=== PATIENT | male | born 1990 | race Caucasian/White ===

== ENCOUNTER 2024-05-07 13:24 | Emergency (ER) | payer BC, SELFPAY ==
--- OUTSIDE RECORDS SUMMARY | 2024-05-07 13:28 | XMS REPORT | Clinical Summary ---
Author Name Unknown Organization [facility] Address [address] [place] [address] Care Team Providers Care Senior Air Director Name Role Phone Ivan Zapata MD Unavailable [phone] Ivan Zapata MD Unavailable [phone] Yadiel Morales MD Primary Care Provider [phone] Allergies No known active allergies Medications * This document contains information received from the source organization and may not represent a complete record from that organization. ibuprofen 200 mg cap Take 200 mg by mouth as needed. Active cetirizine 10 mg cap Take 10 mg by mouth. 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 Tooth disorder I've pretty much always had bad teeth. Ulcer 08-28-16 Stomach ulcer fo rmed during chemo, one time thing. Disorder of testis 07-15-16 Testicular ca ncer. Anemia 08-28-16 During and follo wing chemo. Fracture of bone 08-04-2009 Fractured left heel. Complication of internal pro sthetic device 10-29-2009 Plate and screws in left joe t due to fracture. Obsessive-compulsive disorder Ve ry mild, never formally diagnosed. 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 Family History Medical History Relation Name Comments -Breast cancer Mother Elisabeth Caro Relation Name Status Comments Mother Elisabeth Gordo Social History Tobacco Use Types Packs/Day Years Used Date Smoking Tobacco: Former Cigarettes 0.5 7 0 08/14/2008 - 02/14/2015 Smokeless Tobacco: Never Tobacco Cessation:Ready to Q uit: Yes Alcohol Use Standard Drinks/Week Comments Yes 0 (1 standard drink = 0.6 oz pure alcohol) Very light use. I will often go months without having any. Sex and Gender Information Value Date Recorded Sex Assigned at Not on file Legal Sex Male 11:37 AM CDT Gender Identity Not on file Sexual Orientation Not on file Obstetrics History Plan of Treatment Health Maintenance Due Date Last Done Comments COVID-19 Vaccine (2023-2 5 season) 2023 05/09/2020, 04/18/2020 Influenza Vaccine (#1) 2023 Pneumococcal Vaccine Aged Out No long er eligible based on patient's age to complete this topic [place] [facility] [place] [facility] [id number] [place] [id number] Care Teams Senior Air Director Relationship Specialty Start Date End Date Ivan Zapata MD [email or web address] - External Referring Internal Medicine 08/29/17 Ivan Zapata MD [email or web address] [email or web address] - External Follow Up A Internal Medicine 08/29/17 Yadiel Morales MD [address] [place] [id number] [email or web address] PCP - General Genitourinary Oncology 08/29/17
--- NOTE | 2024-05-07 13:58 | RAD REPORT ---
EXAMINATION: ONE VIEW CHEST XR CLINICAL INDICATION: COUGH TECHNIQUE: Frontal chest projection is submitted. Examination is limited by patient positioning and t echnique. COMPARISON: No prior exam. FINDINGS: The lungs are well inflated and clear. The heart is upper limit of normal in size. No displaced fract ures identified. IMPRESSION: No acute intrathoracic abnormalities.
--- NOTE | 2024-05-07 13:59 | RAD REPORT ---
EXAM: CT brain without contrast HISTORY: HEADACHE COMPARISON: None TECHNIQUE: Multiple contiguous axial images were obtained and a CT of the brain without contrast. Sag ittal and coronal reformats were performed. One or more of the following dose reduction techniques were used: Automated exposure control, adjust ment of the mA and/or kV according to patient size, and/or iterative reconstruction. FINDINGS: No evidence of hydrocephalus, intracranial hemorrhage, or extra-axial fluid collection. The brain is normal in morphology. No evidence of midline shift or areas of brain edema. The calvarium is intact. The visualized paranasal sinuses and mastoid air cells are essentially clear . IMPRESSION: No evidence of acute intracranial abnormality.
[2024-05-07] MEDS ORDERED: NA CHLORIDE 0.9% 1,000 ML ONE (14:12)
[2024-05-07 14:19] LABS: Absolute Eosinophils 0.1 K/uL (0-0.5); Absolute Monocytes 0.5 K/uL (0.1-1.3); Absolute Neutrophil 4.3 K/uL (1.8-8.0); Basophils % 0.3 % (0-1.3); Eosinophils % 1.3 % (0-4.4); Hematocrit 43.9 % (39.6-49.0); Hemoglobin 14.8 g/dL (13.6-17.9); Lymphocytes % 17.4 % (15.3-44.8); MCH 28.4 pg (27.0-35.0); MCHC 33.8 g/dL (32.0-36.0); MCV 84.1 fL (80-100); MPV 7.1 fL (7.6-11.3); Nucleated Red Blood Cells % 0.1 % (0-0); Platelets 199 thou/uL (152-406); RBC Red Blood Cell Count 5.22 M/uL (4.33-5.43); Red Cell Distribution Width 14.3 % (12.1-15.2)
[2024-05-07 14:24] LABS: PT Prothrombin Time 12.1 SECONDS (10-13.0); Protime INR 1.06
[2024-05-07 14:44] LABS: Albumin 3.8 g/dL (3.4-5.0); Albumin/Globulin Ratio 0.9 (1.1-1.8); Anion Gap 4.8 mEq/L (5.0-15.0); Bilirubin Direct 0.2 mg/dL (0-0.2); Bilirubin Indirect, Calculated 0.6 mg/dL (0.2-0.8); Bilirubin Total 0.8 mg/dL (0.2-1.0); Globulin 4.2 g/dL (2.3-3.5); Magnesium 2.3 mg/dL (1.6-2.4); Potassium 3.8 mEq/L (3.5-5.1); Thyroid Stimulating Hormone 1.49 uIU/mL (0.358-3.740); Troponin High Sensitivity 3.1 pg/mL (<58.9)
--- NOTE | 2024-05-07 14:51 | EDPHYS ---
Physician Documentation [facility] Name: Gerhard Caro Age: 33 yrs Sex: Male : 1990 Arrival Date: 05/07/2024 Time: 13:24 Bed 13 Private MD: ED Physician Arash You HPI: 05/07 14:29 This 33 yrs old Male presents to ER via Ambulatory with complaints of gold Headache, heart beating fast. 14:29 The patient complains of pain to the forehead. The patient describes the headache as gold aching. Onset: The symptoms/episode began/occurred just prior to arrival. Associated signs and symptoms: The patient has no apparent associated signs or symptoms. Severity of symptoms: At its worst the pain was mild, in the emergency department the pain is unchanged. Headache History: The patient has had previous headaches and this one is similar to previous episodes. The patient has experienced similar episodes in the past, several times, multiple times. Historical: - Allergies: 13:35 No Known Allergies; aa5 - Home Meds: 13:35 None [Active]; aa5 - PMHx: 13:35 Testicular cancer; aa5 - PSHx: 13:35 Testicular cancer sx; Left foot; aa5 - Immunization history:: Adult Immunizations unknown. - Infectious Disease History:: Denies. - Social history:: Smoking status: Reported history of juuling and/or vaping. ROS: 14:32 Constitutional: Negative for fever, chills, and weight loss, Eyes: Negative for injury, gold pain, redness, and discharge, ENT: Negative for injury, pain, and discharge, Neck: Negative for injury, pain, and swelling, Respiratory: Negative for shortness of breath, cough, wheezing, and pleuritic chest pain, Abdomen/GI: Negative for abdominal pain, nausea, vomiting, diarrhea, and constipation, Back: Negative for injury and pain, : Negative for injury, bleeding, discharge, and swelling, MS/Extremity: Negative for injury and deformity, Skin: Negative for injury, rash, and discoloration, Psych: Negative for depression, anxiety, suicide ideation, homicidal ideation, and hallucinations, Allergy/Immunology: Negative for hives, rash, and allergies, Endocrine: Negative for neck swelling, polydipsia, polyuria, polyphagia, and marked weight changes, Hematologic/Lymphatic: Negative for swollen nodes, abnormal bleeding, and unusual bruising, 14:32 Cardiovascular: Positive for palpitations, 14:32 Neuro: Positive for headache, near syncope, Exam: 14:32 Constitutional: This is a well developed, well nourished patient who is awake, alert, gold and in no acute distress. Head/Face: Normocephalic, atraumatic. Eyes: Pupils equal round and reactive to light, extra-ocular motions intact. Lids and lashes normal. Conjunctiva and sclera are non-icteric and not injected. Cornea within normal limits. Periorbital areas with no swelling, redness, or edema. ENT: Nares patent. No nasal discharge, no septal abnormalities noted. Tympanic membranes are normal and external auditory canals are clear. Oropharynx with no redness, swelling, or masses, exudates, or evidence of obstruction, uvula midline. Mucous membranes moist. Neck: Trachea midline, no thyromegaly or masses palpated, and no cervical lymphadenopathy. Supple, full range of motion without nuchal rigidity, or vertebral point tenderness. No Meningismus. Chest/axilla: Normal chest wall appearance and motion. Nontender with no deformity. No lesions are appreciated. Cardiovascular: Regular rate and rhythm with a normal S1 and S2. No gallops, murmurs, or rubs. Normal PMI, no JVD. No pulse deficits. Respiratory: Lungs have equal breath sounds bilaterally, clear to auscultation and percussion. No rales, rhonchi or wheezes noted. No increased work of breathing, no retractions or nasal flaring. Abdomen/GI: Soft, non-tender, with normal bowel sounds. No distension or tympany. No guarding or rebound. No evidence of tenderness throughout. Back: No spinal tenderness. No costovertebral tenderness. Full range of motion. Male : Normal genitalia with no discharge or lesions. Skin: Warm, dry with normal turgor. Normal color with no rashes, no lesions, and no evidence of cellulitis. MS/ Extremity: Pulses equal, no cyanosis. Neurovascular intact. Full, normal range of motion., bilateral aka Neuro: Awake and alert, GCS 15, oriented to person, place, time, and situation. Cranial nerves II-XII grossly intact. Motor strength 5/5 in all extremities. Sensory grossly intact. Cerebellar exam normal. Normal gait. Psych: Awake, alert, with orientation to person, place and time. Behavior, mood, and affect are within normal limits. 14:32 ECG was reviewed by the Attending Physician. 14:32 Musculoskeletal/extremity: DVT Exam: No signs of deep vein thrombosis. no pain, no swelling, no tenderness, negative Homans' sign noted on exam, no appreciated bluish discoloration, no erythema, no increased warmth, Vital Signs: 13:33 BP 135 / 83; Pulse 80; Resp 18 S; Temp 97.5(TE); Pulse Ox 100% on R/A; Weight 131.54 kg aa5 (R); Height 6 ft. 5 in. (R); 14:22 BP 115 / 76; Pulse 73; Resp 18; Pulse Ox 96% on R/A; ph 15:29 BP 121 / 78; Pulse 71; Resp 18; Temp 97.5; Pulse Ox 98% on R/A; ph 13:33 Body Mass Index 34.39 (131.54 kg, 195.58 cm) aa5 NIH Stroke Scale Scores: 14:32 NIHSS Score: 0 gold Edu Coma Score: 14:34 Eye Response: spontaneous(4). Motor Response: obeys commands(6). Verbal Response: gold oriented(5). Total: 15. MDM: 13:34 Medical Screening Exam initiated gold 14:34 Differential diagnosis: cluster headache, hypoglycemia, hyponatremia, migraine, gold neoplasm, subarachnoid bleed, subdural hematoma, temporal arteritis, trigeminal neuralgia. Data reviewed: vital signs, nurses notes, lab test result(s), EKG, radiologic studies, plain films. Consideration of Admission/Observation Escalation of care including admission/observation considered. I considered the following discharge prescriptions or medication management in the emergency department Medications were administered in the Emergency Department. See MAR. Independent interpretation of the following test(s) in the Emergency Department EKG: See my EKG interpretation above. Test considered but Not performed: MRI: no mri brain. Historians other than the Patient: Spouse/Significant Other: well informed. Care significantly affected by the following chronic conditions: Obesity, Cancer. 05/07 13:36 Order name: Basic Metabolic Panel; Complete Time: 14:50 [facility] 05/07 13:36 Order name: CBC with Diff; Complete Time: 14:29 [facility] 05/07 13:36 Order name: LFT's; Complete Time: 14:50 05/07 13:36 Order name: Magnesium; Complete Time: 14:50 05/07 13:36 Order name: NT PRO-BNP; Complete Time: 14:50 05/07 13:36 Order name: PT-INR; Complete Time: 14:29 05/07 13:36 Order name: Troponin HS; Complete Time: 14:50 05/07 13:36 Order name: TSH; Complete Time: 14:50 05/07 13:36 Order name: XRAY Chest (1 view); Complete Time: 14:14 05/07 13:36 Order name: CT Head Brain wo Cont; Complete Time: 14:14 [facility] 05/07 13:36 Order name: Cardiac monitoring; Complete Time: 14:06 05/07 13:36 Order name: EKG - Nurse/Tech; Complete Time: 14:06 05/07 13:36 Order name: IV Saline Lock; Complete Time: 14:19 [facility] 05/07 13:36 Order name: Labs collected and sent; Complete Time: 14:19 05/07 13:36 Order name: O2 Per Protocol; Complete Time: 13:55 [facility] 05/07 13:36 Order name: O2 Sat Monitoring; Complete Time: 13:55 [facility] EC:32 Rate is 75 beats/min. Rhythm is regular. QRS [place] is Normal. [place] interval is normal. QRS gold interval is normal. QT interval is normal. No Q waves. T waves are Normal. No ST changes noted. Clinical impression: Normal ECG and No evidence of ischemia. Interpreted by me. Reviewed by me. Administered Medications: 14:19 Drug: NS 0.9% IV 1000 ml IV at 1 bolus Per protocol; to be given as a bolus over 60 ph minutes Route: IV; Rate: 1 bolus; Site: right antecubital; 15:28 Follow up: Response: No adverse reaction; IV Status: Completed infusion; IV Intake: ph 1000ml Disposition Summary: 05/07/24 14:51 Discharge Ordered Notes: Location: Home gold Problem: new gold Symptoms: have improved gold Condition: Stable gold Diagnosis - Anxiety disorder, unspecified gold - Headache gold - Syncope Near gold Followup: gold - With: Private Physician - When: 2 - 3 days - Reason: Recheck today's complaints, Continuance of care, Re-evaluation by your physician Discharge Instructions: - Discharge Summary Sheet gold - General Headache Without Cause gold - Near-Syncope gold - Near-Syncope, [id number]-mf-[id number] gold - Panic Attack, Svjv-ot-Afxq gold - General Headache Without Cause, Sday-ml-Ztnq gold - Supporting Someone With Anxiety gold - Managing Anxiety, Adult gold Forms: - Medication Reconciliation Form gold - Antibiotic Education gold - Prescription Opioid Use gold - Patient Portal Instructions gold - Leadership Thank You Letter gold - Work release form iw Prescriptions: - Ibuprofen 600 mg Oral Tablet - take 1 tablet ORAL route every 6 hours As needed take with food; 30 tablet; gold Refills: 0, Product Selection Permitted NIH Stroke Scale - NIH Stroke Score Date: 05/07/2024 Time: 14:32 Total Score = 0 10. Dysarthria (speech clarity - read or repeat words) - 0(Normal) 11. Extinction and Inattention (visual/tactile/auditory/spatial/personal) - 0(No abnormality) 1a. Level of Consciousness (LOC) - 0(Alert) 1b. Level of Consciousness (LOC) (Month \T\ Age) - 0(Both) 1c. LOC Commands (Open \T\ Closes Eyes/Wall Scraper) - 0(Both) 2. Best Gaze (Lateral Gaze Paresis) - 0(Normal) 3. Visual Field Loss - 0(No visual loss) 4. Facial Palsy - 0(Normal) 5a. Left Arm: Motor (10-second hold) - 0(No drift) 5b. Right Arm: Motor (10-second hold) - 0(No drift) 6a. Left Leg: Motor (5-second hold - always test supine) - 0(No drift) 6b. Right Leg: Motor (5-second hold - always test supine) - 0(No drift) 7. Limb Ataxia (finger/nose \T\ heel/sood - test with eyes open) - 0(Absent) 8. Sensory Loss (pinprick arms/legs/face) - 0(Normal) 9. Best Language: Aphasia (description/naming/reading) - 0(No aphasia) Initials: gold Signatures: Dispatcher [employer] Arash Jay MD MD cha Calderon, Audri, RN RN mei5 Monica Araujo RN RN ph Corrections: (The following items were deleted from the chart) 13:36 13:35 PMHx: None; aa5 aa5 13:37 13:37 BASIC METABOLIC PANEL+C.LAB.BRZ ordered. EDMS EDMS 13:37 13:37 CBC+H.LAB.BRZ ordered. EDMS EDMS 13:37 13:37 HEPATIC FUNCTION+C.LAB.BRZ ordered. EDMS EDMS 13:37 13:37 MAGNESIUM+C.LAB.BRZ ordered. EDMS EDMS 13:37 13:37 PROBNP+C.LAB.BRZ ordered. EDMS EDMS 13:37 13:37 PROTIME (+INR)+COAG.LAB.BRZ ordered. EDMS EDMS 13:37 13:37 Troponin High Sensitivity+C.LAB.BRZ ordered. EDMS EDMS 13:37 13:37 Urinalysis+U.LAB.BRZ ordered. EDMS EDMS 13:37 13:37 URINE DRUG SCREEN+UC.LAB.BRZ ordered. EDMS EDMS 13:37 13:37 THYROID STIMULAT HORMONE+C.LAB.BRZ ordered. EDMS EDMS 13:37 13:37 Chest Single View+RAD.RAD.BRZ ordered. EDMS EDMS 13:37 13:37 Head Brain Wo Cont+CT.RAD.BRZ ordered. EDMS EDMS
--- NOTE | 2024-05-07 14:51 | ER ---
Nurse's Notes [facility] Name: Gerhard Caro Age: 33 yrs Sex: Male : 1990 Arrival Date: 05/07/2024 Time: 13:24 Bed 13 Private MD: Diagnosis: Anxiety disorder, unspecified;Headache;Syncope Near Presentation: 05/07 13:33 Chief complaint: Patient states: "about an hour ago my heart started racing, I got aa5 dizzy and lightheaded and I passed out and fell over". Pt denies any known injuries, reports still feeling lightheaded. Coronavirus screen: At this time, the client does not indicate any symptoms associated with coronavirus-19. Ebola Screen: Patient denies travel to an Ebola-affected area in the 21 days before illness onset. Initial Sepsis Screen: Does the patient meet any 2 criteria? No. Patient's initial sepsis screen is negative. Does the patient have a suspected source of infection? No. Patient's initial sepsis screen is negative. Risk Assessment: Do you want to hurt yourself or someone else? Patient reports no desire to harm self or others. Onset of symptoms was April 2024. 13:33 Acuity: LORI 3 aa5 13:33 Method Of Arrival: Ambulatory aa5 Historical: - Allergies: 13:35 No Known Allergies; aa5 - Home Meds: 13:35 None [Active]; aa5 - PMHx: 13:35 Testicular cancer; aa5 - PSHx: 13:35 Testicular cancer sx; Left foot; aa5 - Immunization history:: Adult Immunizations unknown. - Infectious Disease History:: Denies. - Social history:: Smoking status: Reported history of juuling and/or vaping. Screenin:20 [facility] ED Fall Risk Assessment (Adult) History of falling in the last 3 months, ph including since admission Yes- physiologic fall (2 pts) Confusion or Disorientation No (0 pts) Intoxicated or Sedated No (0 pts) Impaired Gait No (0 pts) Mobility Assist Device Used No (0 pt) Altered Elimination No (0 pt) Score/Fall Risk Level 0 - 2 = Low Risk Oriented to surroundings, Maintained a safe environment, Hourly rounding (assess needs \\T\\ fall precautionary measures) done, Used ambulatory aids as needed (educated on \\T\\ assisted with). Abuse screen: Denies threats or abuse. Denies injuries from another. Nutritional screening: No deficits noted. Tuberculosis screening: No symptoms or risk factors identified. Assessment: 14:21 General: Appears in no apparent distress. Behavior is calm, cooperative. Pain: Denies ph pain. Neuro: Level of Consciousness is awake, alert, obeys commands, Oriented to person, place, time, situation, Reports a syncopal episode. Cardiovascular: Capillary refill < 3 seconds in bilateral fingers Patient's skin is warm and dry. Respiratory: Airway is patent Respiratory effort is even, unlabored, Respiratory pattern is regular, symmetrical. Derm: Skin is pink, warm \\T\\ dry. Vital Signs: 13:33 BP 135 / 83; Pulse 80; Resp 18 S; Temp 97.5(TE); Pulse Ox 100% on R/A; Weight 131.54 kg aa5 (R); Height 6 ft. 5 in. (R); 14:22 BP 115 / 76; Pulse 73; Resp 18; Pulse Ox 96% on R/A; ph 15:29 BP 121 / 78; Pulse 71; Resp 18; Temp 97.5; Pulse Ox 98% on R/A; ph 13:33 Body Mass Index 34.39 (131.54 kg, 195.58 cm) aa5 Edu Coma Score: 14:34 Eye Response: spontaneous(4). Motor Response: obeys commands(6). Verbal Response: gold oriented(5). Total: 15. NIH Stroke Scale Scores: 14:32 NIHSS Score: 0 gold ED Course: 13:29 Patient arrived in ED. al6 13:33 Arm band placed on. aa5 13:34 Arsah You MD is Attending Physician. gold 13:35 Triage completed. aa5 13:46 Monica Araujo, RN is Primary Nurse. ph 13:51 CT Head Brain wo Cont In Process Unspecified. EDMS 13:54 XRAY Chest (1 view) In Process Unspecified. EDMS 14:06 EKG done, by ED staff, reviewed by Arash You MD. zm 14:21 Patient has correct armband on for positive identification. Bed in low position. Call ph light in reach. Side rails up X 1. surveillance monitor on. Pulse ox on. NIBP on. Door closed. Noise minimized. 14:21 Initial lab(s) drawn, by me, sent to lab. Inserted saline lock: 20 gauge in right ph antecubital area, using aseptic technique. Blood collected. Flushed with 10 mL NS. 15:28 No provider procedures requiring assistance completed. IV discontinued, intact, ph bleeding controlled, No redness/swelling at site. Pressure dressing applied. Administered Medications: 14:19 Drug: NS 0.9% IV 1000 ml IV at 1 bolus Per protocol; to be given as a bolus over 60 ph minutes Route: IV; Rate: 1 bolus; Site: right antecubital; 15:28 Follow up: Response: No adverse reaction; IV Status: Completed infusion; IV Intake: ph 1000ml Medication: 14:20 VIS not applicable for this client. ph Intake: 15:28 IV: 1000ml; Total: 1000ml. ph Outcome: 14:51 Discharge ordered by . gold 15:29 Discharged to home ambulatory, with significant other, 15:29 Condition: good 15:29 Discharge instructions given to patient, Instructed on discharge instructions, follow up and referral plans. medication usage, Demonstrated understanding of instructions, follow-up care, medications, Prescriptions given X 1, 15:29 Patient left the ED. ph NIH Stroke Scale - NIH Stroke Score Date: 05/07/2024 Time: 14:32 Total Score = 0 10. Dysarthria (speech clarity - read or repeat words) - 0(Normal) 11. Extinction and Inattention (visual/tactile/auditory/spatial/personal) - 0(No abnormality) 1a. Level of Consciousness (LOC) - 0(Alert) 1b. Level of Consciousness (LOC) (Month \\T\\ Age) - 0(Both) 1c. LOC Commands (Open \\T\\ Closes Eyes/Decal Transferrer) - 0(Both) 2. Best Gaze (Lateral Gaze Paresis) - 0(Normal) 3. Visual Field Loss - 0(No visual loss) 4. Facial Palsy - 0(Normal) 5a. Left Arm: Motor (10-second hold) - 0(No drift) 5b. Right Arm: Motor (10-second hold) - 0(No drift) 6a. Left Leg: Motor (5-second hold - always test supine) - 0(No drift) 6b. Right Leg: Motor (5-second hold - always test supine) - 0(No drift) 7. Limb Ataxia (finger/nose \\T\\ heel/sood - test with eyes open) - 0(Absent) 8. Sensory Loss (pinprick arms/legs/face) - 0(Normal) 9. Best Language: Aphasia (description/naming/reading) - 0(No aphasia) Initials: gold Signatures: Dispatcher [employer] Arash Jay MD MD cha Calderon, Audri, RN RN aa5 Monica Araujo RN RN ph Martinez, Evita Mancera6 Corrections: (The following items were deleted from the chart) 13:36 13:35 PMHx: None; aa5 aa5
[2024-05-07 15:51] VITALS: TEMP 97.5
[2024-05-07 16:07] VITALS: BP 121/78; O2SAT 98
== END 2024-05-07 15:29 | disposition home or self-care (01) ==
LOC: ER 13:24
DX: F41.9 Anxiety disorder, unspecified (principal); R51.9 Headache, unspecified; R55 Syncope and collapse
CPT/HCPCS: 93005; 85025; 80048; 36415; 83735; 85610; 80076; 84443; 84484; 83880; 70450; 71045; 96360; 99285; J7030